=== PATIENT | male | born 1970 | race Caucasian/White ===

== ENCOUNTER 2017-05-16 08:26 | Observation (INO) ==
[2017-05-16 08:56] LABS: Basophils % 0.3 %; Eosinophils # 0.6 K/mcL (0.0-0.6); Eosinophils % 4.9 %; Hematocrit 52.1 % (37.5-50.1); Hemoglobin 17.6 g/dL (12.9-16.9); Immature Granulocytes % 0.5 % (0-4); Lymphocytes # 1.6 K/mcL (0.6-4.6); Lymphocytes % 12.3 %; Mean Corpuscular HGB Conc 33.8 g/dL (31.6-35.5); Mean Corpuscular Hemoglobin 30.7 pg (28.0-33.3); Mean Corpuscular Volume 90.9 fL (83.0-100.0); Mean Platelet Volume 9.5 fL (9.4-12.4); Monocytes # 0.7 K/mcL (0.0-1.3); Monocytes % 5.1 %; Platelet Count 311 K/mcL (140-400); Red Blood Count 5.73 M/mcL (4.19-5.50); Red Cell Distribution Width 12.8 % (11.5-14.5); Segmented Neutrophils % 76.9 %
--- NOTE | 2017-05-16 08:56 | Emergency Department Note ---
Disposition Clinical Impression: Elevated troponin Syncope Qualifiers: Syncope type: unspecified Qualified Code(s): R55 - Syncope and collapse Disposition: Left Against Medical Advice Condition: Fair Instructions: Myocardial Infarction (GEN), Pacemaker (GEN), Syncope (ED) Referrals: [facility] [Outside] Yehuda Carson DO [Partnered Physician] - Yehuda Bess MD [Partnered Physician] - Forms: ED Satisfaction Letter Time of Disposition: 10:22 General Adult HPI - General Chief complaint: ED Syncope Stated complaint: syncope Time Seen by Provider: 05/16/17 08:28 Source: family, EMS Limitations: no limitations Nursing Notes Reviewed: Yes Vital Signs Reviewed: Yes - History of Present Illness HPI Narrative: Mr. Gray, a 46yo male, results from home via EMS for evaluation of syncope versus seizure like activity. Patient had his morning coffee and was walking outside back to his front door after making his rounds around his property. Patient has no additional recollection. He denies any prodromal symptoms. Patient's for the dog bark, she looked outside and found the patient on the ground (grass/gravel) supine, cyanotic mucous membranes, pursed lip breathing, arms and legs extended and with purposeless movement, eyes closed, head moving side to side. Patient had kicked off his left shoe. Patient did not have any incontinence. He denies any pain at this time. Patient has no diagnosis of seizure or syncope however there was a very similar event that occurred approximately 6 weeks ago where patient refused transport to the hospital. He is frustrated at this time because he was not able to refuse; by the time he was coherent and aware he was already in the ambulance being transported. Family history: Patient's grandfather at the age 52 of unknown cause. Patient's mother has a pacemaker defibrillator for symptomatic bradycardia as well as atrial fibrillation. Patient's mother has 22 of 36 cousins had symptomatic bradycardia with subsequent pacemaker defibrillator. PMH: History of histoplasmosis. 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 Partially blind in his right eye-described as complete lack of peripheral vision. He receives regular injections from his preservationist. 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 No other medical problems; no pulmonary or cardiac history. ROS: Positive: Found on ground with no prodromal symptoms. Negative: Fever, chills, nausea, vomiting, chest pains, palpitations, dyspnea, diaphoresis, back pains, weakness, numbness, tingling, headache, changes in vision, abdominal pain. Pain Scale: 0 - Related Data Home Medications Medication Instructions Recorded Confirmed Ibuprofen [Motrin] 600 mg PO Q6HR PRN 05/16/17 05/16/17 Multivit-Min/FA/Lycopen/Lutein [A 1 tab PO DAILY 05/16/17 05/16/17 Thru Z Select Multivit Tab] Allergies Allergy/AdvReac Type Severity Reaction Status Date / Time No Known Allergies Allergy Verified 05/16/17 08:37 All systems ED: reviewed and negative except as stated. Past Medical History - Past Medical History Medical history: Reports: non-contributory Psychiatric history: Reports: no psych history - Social History Smoking Status: Never smoker Smokeless Tobacco Status: No Alcohol use: Reports: none Drug use: Reports: none Physical Exam Vital Signs Reviewed General: Patient is alert, oriented, and in no acute distress. He is answering questions appropriately without hesitation. HEENT: No facial asymmetry. Head is normocephalic and atraumatic. Oral mucosa moist. Trachea midline. Cardiovascular: Heart regular rate and rhythm without clicks, rubs, gallops, or murmurs. No JVD. PMI nondisplaced. Radial posterior tibial pulses 2/4 equal. His capillary refill. Respiratory: Symmetric chest rise with good respiratory effort. Bilateral breath sounds are clear without wheezing, crackles, or rhonchi. Abdomen: Obese. Bowel sounds present normoactive x-4 quadrants. Abdomen is soft, nondistended, and nontender. Unable to assess organomegaly secondary to patient's body habitus. Musculoskeletal: Muscle strength 5/5 and symmetric bilaterally in upper and lower extremities. DTRs 2/4 and symmetric bilaterally in upper and lower extremities. No midline C-spine tenderness. Neuro: Cranial nerves II through XII without deficit. Sensation light touch intact. GCS 15. Psych: Patient's affect is appropriate for situation. - General Limitations: no limitations General appearance: alert, in no apparent distress Course Course Narrative: Patient presents with story concerning for seizure versus syncope. Clinically, his movements appear to be post syncopal convulsions. Patient had no prodromal symptoms. He has never been worked up from either a neurologic or cardiac standpoint. EKG is unremarkable. No recent infections. No headache. Patient troponin is elevated at 0.04. We will provide aspirin. On examination, patient reports to have a headache. We will provide analgesia. Patient's headache improved with analgesia. CT head read as no acute process per radiology. Chest x-ray read as no acute process per radiology. After long discussion with the patient, his , mother, and father at bedside he begrudgingly agrees for admission. I expressed my genuine concern over his asymptomatic syncope coupled with family history of symptomatically bradycardia and the of his grandfather and young age. Reason for admission: Syncope (suspected symptomatic bradycardia), elevated troponins Spoke with him and hospitalist, Dr. Stern, who agrees to accept the patient for continued workup and evaluation. Vital Signs Temperature 97.8 F 05/16/17 08:28 Pulse Rate 74 05/16/17 08:28 Respiratory Rate 16 05/16/17 08:28 Blood Pressure 150/102 05/16/17 08:28 O2 Sat by Pulse Oximetry 96 05/16/17 08:28 Temperature 97.8 F 05/16/17 08:28 Pulse Rate 68 05/16/17 11:08 Respiratory Rate 15 05/16/17 11:08 Blood Pressure 174/118 05/16/17 11:08 O2 Sat by Pulse Oximetry 98 05/16/17 09:46 Oxygen Delivery Oxygen Delivery Room Air Medical Decision Making - Medical Records Medical records reviewed: Yes I reviewed the patient's medical records. - Lab Data Lab results reviewed: Yes I reviewed the patient's lab results. Result diagrams: 05/16/17 08:49 05/16/17 08:49 Lab Results 05/16/17 05/16/17 05/16/17 Range/Units 08:29 08:49 08:49 WBC 13.0 H (4.3-11.1) K/mcL RBC 5.73 H (4.19-5.50) M/mcL Hgb 17.6 H (12.9-16.9) g/dL Hct 52.1 H (37.5-50.1) % MCV 90.9 (83.0-100.0) fL MCH 30.7 (28.0-33.3) pg MCHC 33.8 (31.6-35.5) g/dL RDW 12.8 (11.5-14.5) % Plt Count 311 (140-400) K/mcL MPV 9.5 (9.4-12.4) fL Immature Gran % 0.5 (0-4) % Seg Neutrophils % 76.9 % Lymphocytes % 12.3 % Monocytes % 5.1 % Eosinophils % 4.9 % Basophils % 0.3 % Neutrophils # 10.0 H (1.6-8.9) K/mcL Lymphocytes # 1.6 (0.6-4.6) K/mcL Monocytes # 0.7 (0.0-1.3) K/mcL Eosinophils # 0.6 (0.0-0.6) K/mcL Basophils # 0.0 (0.0-0.2) K/mcL Sodium 138 (136-145) mEq/L Potassium 4.2 (3.5-4.5) mEq/L Chloride 105 (98-109) mEq/L Carbon Dioxide 20 (19-29) mEq/L BUN 8 (8-26) mg/dL Creatinine 1.16 (0.72-1.25) mg/dL Est GFR ( Amer) > 60 (> 60) Est GFR (Non-Af Amer) > 60 (> 60) BUN/Creatinine Ratio 7 (6-26) Glucose 178 H (70-99) mg/dL POC Glucose 176 H (58-89) Calculated Osmolality 289 (280-300) Calcium 9.8 (8.6-10.8) mg/dL Magnesium 2.3 (1.6-2.6) mg/dL Troponin I (0-0.03) ng/mL Urine Color (Yellow) Urine Clarity (Clear) Urine pH (5.0-8.0) pH Units Ur Specific [place] (1.010-1.025) Urine Protein (Neg-Trace) mg/dL Urine Glucose (UA) (Normal) mg/dL Urine Ketones (Negative) mg/dL Urine Blood (Negative) Urine Nitrite (Negative) Urine Bilirubin (Negative) Urine Urobilinogen (Normal) mg/dL Ur Leukocyte Esterase (Negative) Urine Microscopic RBC (0-3) per hpf Urine Microscopic WBC (0-3) per hpf Ur Squamous Epith Cells (None-Few) per lpf Urine Bacteria (None-Few) per hpf Hyaline Casts (None-Few) per lpf Urine Opiates Screen (Ccizrd=643) ng/mL Ur Barbiturates Screen (Okrvyd=317) ng/mL Ur Phencyclidine Scrn (Cutoff=25) ng/mL Ur Amphetamines Screen (Dnctsy=4838) ng/mL U Benzodiazepines Scrn (Vrjblg=181) ng/mL Urine Cocaine Screen (Cutoff= 300) ng/mL U Marijuana (THC) Screen (Cutoff = 50) ng/mL 05/16/17 05/16/17 05/16/17 Range/Units 08:49 09:30 09:30 WBC (4.3-11.1) K/mcL RBC (4.19-5.50) M/mcL Hgb (12.9-16.9) g/dL Hct (37.5-50.1) % MCV (83.0-100.0) fL MCH (28.0-33.3) pg MCHC (31.6-35.5) g/dL RDW (11.5-14.5) % Plt Count (140-400) K/mcL MPV (9.4-12.4) fL Immature Gran % (0-4) % Seg Neutrophils % % Lymphocytes % % Monocytes % % Eosinophils % % Basophils % % Neutrophils # (1.6-8.9) K/mcL Lymphocytes # (0.6-4.6) K/mcL Monocytes # (0.0-1.3) K/mcL Eosinophils # (0.0-0.6) K/mcL Basophils # (0.0-0.2) K/mcL Sodium (136-145) mEq/L Potassium (3.5-4.5) mEq/L Chloride (98-109) mEq/L Carbon Dioxide (19-29) mEq/L BUN (8-26) mg/dL Creatinine (0.72-1.25) mg/dL Est GFR ( Amer) (> 60) Est GFR (Non-Af Amer) (> 60) BUN/Creatinine Ratio (6-26) Glucose (70-99) mg/dL POC Glucose (58-89) Calculated Osmolality (280-300) Calcium (8.6-10.8) mg/dL Magnesium (1.6-2.6) mg/dL Troponin I 0.04 H* (0-0.03) ng/mL Urine Color Yellow (Yellow) Urine Clarity Clear (Clear) Urine pH 6.0 (5.0-8.0) pH Units Ur Specific [place] 1.018 (1.010-1.025) Urine Protein 30 H (Neg-Trace) mg/dL Urine Glucose (UA) Normal (Normal) mg/dL Urine Ketones Negative (Negative) mg/dL Urine Blood Negative (Negative) Urine Nitrite Negative (Negative) Urine Bilirubin Negative (Negative) Urine Urobilinogen Normal (Normal) mg/dL Ur Leukocyte Esterase Negative (Negative) Urine Microscopic RBC 3-5 H (0-3) per hpf Urine Microscopic WBC 0-3 (0-3) per hpf Ur Squamous Epith Cells Moderate H (None-Few) per lpf Urine Bacteria None Seen (None-Few) per hpf Hyaline Casts None Seen (None-Few) per lpf Urine Opiates Screen Negative (Njptoy=329) ng/mL Ur Barbiturates Screen Negative (Kotghw=420) ng/mL Ur Phencyclidine Scrn Negative (Cutoff=25) ng/mL Ur Amphetamines Screen Negative (Clajpv=0595) ng/mL U Benzodiazepines Scrn Negative (Alcfwp=450) ng/mL Urine Cocaine Screen Negative (Cutoff= 300) ng/mL U Marijuana (THC) Screen Positive H (Cutoff = 50) ng/mL - Radiology Data Radiology results reviewed: Yes I reviewed the patient's radiology results. - EKG Data EKG #1 EKG attestation: Yes I reviewed and interpreted this EKG. EKG results narrative: EKG dated 16 May 2017 at 08:34 interpreted as sinus rhythm with rate of 83. Normal intervals. Normal axis. Nonspecific ST-T changes. Release EKG for comparison. Heart Score - Score History: Moderately Suspicious EKG: Normal Age: 45-65 Risk Factors: 1-2 risk factors Troponin: 1-3x normal limit HEART Score Total: 4
--- NOTE | 2017-05-16 09:08 | Emergency Department Note ---
START Narrative - START START: I examined this patient and my medical decision-making was reviewed with the emergency medicine resident. I agree with the documented findings, disposition and treatment plan as described except to the extent set forth below. Patient seen with emergency medicine resident Alverto Bojorquez, Please see a copy of his note for details of the H&P, ED evaluation, management and disposition. I have independently evaluated the patient and confirmed appropriate portions of the history and physical exam. Briefly: 46-year-old male prior history of syncope versus seizure one year ago but refused any workup. He had a syncope versus seizure episode this morning and was transported by EMS. His found him on the floor with his eyes closed breathing heavily and his arms and legs jerking. Patient does have a slight abrasion to his anterior part of his tongue consistent with seizure. Patient is slightly sleepy but awake and alert and GCS 15. Patient will undergo screening labs and noncontrast head CT. EKG was read as no acute ischemic changes sinus rhythm. Admission anticipated, disposition pending.
[2017-05-16 09:09] LABS: BUN/Creatinine Ratio 7 (6-26); Blood Urea Nitrogen 8 mg/dL (8-26); Calcium 9.8 mg/dL (8.6-10.8); Carbon Dioxide 20 mEq/L (19-29); Chloride 105 mEq/L (98-109); Glucose 178 mg/dL (70-99); Magnesium 2.3 mg/dL (1.6-2.6); Osmolality,Calculated 289 (280-300); Potassium 4.2 mEq/L (3.5-4.5); Sodium 138 mEq/L (136-145); eGFR For African Americans > 60 (> 60); eGFR For Non-African Americans > 60 (> 60)
[2017-05-16] MEDS ORDERED: Aspirin 81 MG TAB.CHEW PO ONE (09:20)
[2017-05-16 09:40] LABS: Bilirubin,Urine Negative (Negative); Blood,Urine Negative (Negative); Clarity,Urine Clear (Clear); Color,Urine Yellow (Yellow); Glucose,Urine (UA) Normal (Normal); Ketones,Urine Negative (Negative); Leukocyte Esterase,Urine Negative (Negative); Nitrite,Urine Negative (Negative); Protein,Urine 30 mg/dL (Neg-Trace); Specific Gravity,Urine 1.018 (1.010-1.025); Urobilinogen,Urine Normal (Normal)
[2017-05-16] MEDS ORDERED: Metoclopramide 10 MG/2 ML VIAL IVP ONE (09:40)
[2017-05-16] MEDS ORDERED: Ketorolac 15 MG/ML VIAL IVP ONE (09:40)
[2017-05-16 09:43] LABS: Bacteria,Urine None Seen per hpf (None-Few); Hyaline Casts,Urine None Seen per lpf (None-Few); Squamous Epithelial Cell,Urine Moderate per lpf (None-Few); WBC,Urine 0-3 per hpf (0-3)
[2017-05-16 09:48] LABS: Amphetamine Screen,Urine Negative ng/mL (Cutoff=1000); Barbiturate Screen,Urine Negative ng/mL (Cutoff=200); Benzodiazepines Screen,Urine Negative ng/mL (Cutoff=200); Cannabinoid Screen,Urine Positive ng/mL (Cutoff = 50); Cocaine Screen,Urine Negative ng/mL (Cutoff= 300); Opiate Screen,Urine Negative ng/mL (Cutoff=300); Phencyclidine Screen,Urine Negative ng/mL (Cutoff=25)
[2017-05-16] MEDS ORDERED: Naloxone 0.4 MG/ML INJ IVP PRN (12:47)
[2017-05-16] MEDS ORDERED: Acetaminophen 325 MG TABLET PO PRN (12:53)
[2017-05-16] MEDS ORDERED: *HR* HYDROcodone/Acet 5/325 mg TABLET PO PRN (12:53)
[2017-05-16] MEDS ORDERED: Ondansetron 4 MG/2 ML VIAL IVP PRN (12:53)
[2017-05-16] MEDS ORDERED: *HR* Morphine 2 MG/ML SYRINGE IVP PRN (12:53)
[2017-05-16] MEDS ORDERED: Pantoprazole 40 MG VIAL IVP SCH (13:00)
[2017-05-16] MEDS ORDERED: SUMAtriptan succinate 25 MG TABLET PO PRN (13:04)
[2017-05-16] MEDS ORDERED: Dextrose Gel 15 GM PO PRN ×2 (13:06)
[2017-05-16] MEDS ORDERED: D5% in Water 1,000 ML IVC PRN (13:06)
[2017-05-16] MEDS ORDERED: *HR* Dextrose 50 % in Water (Syg) 50 ML SYRINGE IVP PRN (13:06)
--- NOTE | 2017-05-16 13:21 | Internal Med History&Physical ---
Date of Encounter: 05/16/17 Time of Encounter: 12:00 Assessment and Plan (1) Syncope Current visit: Yes Status: Acute Patient presents with history of syncope. Patient reports he has syncopal episodes approximately every 6 weeks. He states he had a near-syncopal episode yesterday that did not result in blacking out. Patient reports becoming diaphoretic post-event. Patient reports he does not become incontinent during episodes. There is a familial history of atrial fibrillation, HTN, HLD, and pacemaker placement in multiple family members. CT of the head/brain without contrast today shows no acute intracranial process. Bilateral carotid Doppler imaging ordered to rule out carotid blockages. Echocardiogram ordered. MRI of the head/brain ordered to rule out possible ischemia/infarct. Will place patient on continuous telemetry and trend troponins x2. On examination, patient is neurologically intact and EKG today shows sinus rhythm with non-specific T- wave abnormality. Ativan 2 mg Q4 ordered for seizures. Will consider neuro and cardiology consults based on test results. Qualifiers: Syncope type: unspecified Qualified Code(s): R55 - Syncope and collapse (2) Risk for falls Current visit: Yes Status: Acute Patient presents with history of falls and acute fall today due to syncopal episode. Patient placed as falls precautions/up with assist/bed rest with bathroom privileges with assist only due to hx of falls and syncope. (3) Migraine Current visit: Yes Status: Acute Patient presents with acute on chronic migraine headache. Patient reports history of migraines but is not currently taking any medications for migraine symptoms or control. Patient was given diphenhydramine and Toradol in the ED for headache. Imitrex 25 mg every 2 when necessary ordered. Will monitor patient for pain scale. Qualifiers: Migraine type: unspecified Intractability: not intractable Qualified Code (s): G43.909 - Migraine, unspecified, not intractable, without status migrainosus (4) Hyperglycemia Current visit: Yes Status: Acute Patient presents with blood glucose level of 178 on admission to ED. Patient denies any previous history of diabetes. Blood glucose monitoring Q6. A1c ordered for a.m. labs. Low-dose correction insulin sliding scale and hypoglycemia protocol ordered. (5) Elevated troponin Current visit: Yes Status: Acute Patient presents with initial troponin of 0.04 on admission to the ED. Patient denies any cardiac history, current chest pain, palpitations, or flutter. Will trend troponins x2 and place patient on continuous cardiac telemetry. Echocardiogram and bilateral carotid Doppler duplex imaging ordered. Will consider cardiology consult based on test results if warranted. (6) Histoplasmosis Current visit: Yes Status: Chronic Patient presents with history of chronic histoplasmosis and reports total loss of vision in his left eye and partial loss of vision in the right eye. Patient to follow up with his senior oracle adf developer for continued treatments post-discharge. (7) DVT prophylaxis Current visit: Yes Status: Acute Patient to be placed on DVT prophylaxis due to current admission protocol and bed rest status. Heparin 5,000 units SQ Q8 ordered. Internal Medicine - H&P: HPI Chief complaint: Syncope/Collpase Admitted From: Emergency Dept Plans for Post Hospital Care: Home History of present illness: Mr. Gray is a 46 year old male with medical history of migraines and histoplasmosis who presents from the ED with chief complaint of syncope and collapse. Patient reports he is totally blind in his left eye and partially blind in his right eye due to the histoplasmosis and receives injections from his ophthamologist. Patient reports Mr. Gray was outside in the yard when she looked to see him face down on the ground. Patient has no recollection of the event. He denies any prodromal symptoms. Patient reports the symptoms occur approximately every 6 weeks with some mild incident occurring yesterday which did not involve blacking out. Patient reports he becomes hot and his body feels as if it is causing. Patient also reports becoming diaphoretic after the events. Patient denies any nausea, vomiting, recent illness, fever, chills, abdominal pain, chest pain, changes in vision, heart palpitations, or generalized weakness. Patient's EKG today shows sinus rhythm with nonspecific T-wave abnormality and CT of head brain without contrast shows no acute intracranial abnormality. Mr. Gray is currently hemodynamically stable and reports no acute distress on examination. Information taken from patient, family, imaging results, and chart review. Patient is at high risk for further syncopal events based on current symptoms and history and will be placed as observation status. Time spent with patient and family >40 minutes. Past Med Surg Social Fam HX - Past Medical History Source: patient, obtained from family Medical history: migraine, other (Histoplasmosis) Psychiatric history: no psych history - Social History Smoking Status: Former smoker Packs per day: When he was a teenager Smokeless Tobacco Status: No Alcohol use: none Drug use: none Current living situation: Home, With Family Activity Level: Independent ambulation Recent Out of Country Travel Within the Last 8 Weeks: No Exposure or Possible Exposure to Illness During Travel: No - Family History Mother Race: Family Member Ethnicity: Non- Hx Family Cardiac Disorders: Yes (pacer, bradycardia, afib, htn, hld) Hx Family Cancer: Yes Father Race: Family Member Ethnicity: Non- Living Status: Age at : 73 Cause of : [place] Hx Family Cardiac Disorders: Yes ([place]) Brother Race: Family Member Ethnicity: Non- Living Status: Still Living Hx Family Cardiac Disorders: Yes (HTN) Internal Medicine - H&P: Meds Ibuprofen [Motrin] 600 mg PO Q6HR PRN 05/16/17 [History] Multivit-Min/FA/Lycopen/Lutein [A Thru Z Select Multivit Tab] 1 tab PO DAILY 03/25 [History] 3 Allergy/AdvReac Type Severity Reaction Status Date / Time No Known Allergies Allergy Verified 05/16/17 08:37 All Systems PM: A 10-system review of systems was performed and is negative for pertinent findings except as documented above in the HPI. 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 Ears: no ear discharge, no ear pain, no tinnitus Nose, mouth and throat: no dysphagia, no nasal discharge, no neck pain, no sore throat - Breasts Breasts: as per HPI - Cardiovascular Cardiovascular ROS IM: no chest pain, no diaphoresis, no dyspnea, no lightheadedness, no palpitations, no syncope - Respiratory Respiratory: no cough, no dyspnea, no wheezing, no excessive phlegm production - Gastrointestinal Gastrointestinal: no abdominal pain, no diarrhea, no hematemesis, no hematochezia, no melena, no nausea, no vomiting - Genitourinary Genitourinary ROS male: as per HPI - Musculoskeletal Musculoskeletal ROS IM: no numbness, no tingling - Integumentary Integumentary IM: no rash, no unusual bruising - Neurological Neurological ROS: as per HPI - Psychiatric Psychiatric: as per HPI - Endocrine Endocrine IM: as per HPI - Hematologic/Lymphatic Hematologic/Lymphatic: no easy bruising - Allergic/Immunologic Allergic/Immunologic: as per HPI - Constitutional Vitals: Temp Pulse Resp BP Pulse Ox 98.3 F 63 16 180/96 94 05/16/17 12:05/16/17 12:05/16/17 12:05/16/17 12:05/16/17 12:09 General appearance: Present: cooperative, A&O X 3, pleasant, no acute distress, obese, answers questions appropriately - Head Head exam: Present: atraumatic, normocephalic - Eye Eye exam: Present: PERRL, conjuntiva pink, sclera anicteric Pupils: Present: PERRL - ENT ENT exam: Present: normal exam, normal external ear exam - Neck Neck exam general surgery: Present: normal inspection, supple, trachea midline. Absent: lymphadenopathy - Respiratory Respiratory exam: Present: CTAB. Absent: accessory muscle use, rales, rhonchi, wheezes - Cardiovascular Cardiovascular exam: Present: RRR, +S1, +S2. Absent: diastolic murmur, gallop, rubs, systolic murmur - GI/Abdominal GI/Abdominal exam: Present: normal bowel sounds, soft, no peritoneal signs. Absent: distended, tenderness - Rectal Rectal exam: Present: deferred - Additional comments: exam deferred. - Extremities Exam Extremities exam: Present: warm, radial pulses palpable and symmetrical. Absent : calf tenderness, cyanotic, pedal edema - Back Exam Back exam: Present: normal inspection - Neurological Exam Neurological exam: Present: CN II-XII intact, oriented X3, no focal deficits. Absent: pronater drift, facial droop, speech deficit - Psychiatric Psychiatric exam: Present: normal affect, normal mood - Skin Skin exam: Present: dry, intact Internal Med - H&P Results - Labs CBC & Chem 7: 05/16/17 08:49 05/16/17 08:49 - EKG Data EKG shows normal: sinus rhythm - EKG Data Prior EKG available for review: no EKG comments: 05/16/17 14:34 EKG dated 05/16/17 shows sinus rhythm with non-specific T-wave abnormality. - Diagnostic Studies Chest x-ray Additional comments: Impressions Chest X-Ray 05/16/17 08:41 IMPRESSION: No acute abnormality. D/ / 05/16/2017 11:01:23 Chevy Gunn MD / [email or web address] Interpreting Provider: Chevy Gunn MD CT scan - head Additional comments: Impressions Head CT 05/16/17 08:42 IMPRESSION: No acute intracranial process identified. D/ / Brenden Pino MD / Brenden Pino MD Interpreting Provider: Brenden Pino MD
[2017-05-16] MEDS: *HR* Heparin 5,000 UNIT/ML VIAL SQ SCH ×2 (14:31→21:11)
[2017-05-16] MEDS: Insulin LISPRO 300 UNITS/3 ML VIAL SQ SCH (16:18)
--- NOTE | 2017-05-16 17:12 | Event Note ---
Date of Encounter: 05/16/17 Time of Encounter: 13:00 Patient seen and evaluated along with nurse practitioner; please refer to H&P fir complete details- Briefly, 46-year-old male with no significant past medical history and no medical follow-up presents with a witnessed seizure-like activity at home. On further questioning, patient reports similar intermittent episodes every few weeks, ongoing since at least the last 7 months. He describes the episodes as mainly blackouts, sometimes he regains consciousness within a few seconds by himself and sometimes like this morning, he has witnessed episodes. He was noted to have rocking motion of his head with extension of his trunk and extremities this morning after the found him face down in the yard. Patient denies chest pain, dyspnea, palpitations and only reports some diaphoresis after the episode. Patient seen and examined at bedside. Denies acute symptoms at this time. Chest-S1, S2 heard, regular rate and rhythm. Lungs are clear to auscultation Abdomen soft and nontender Labs reviewed-WBC 13, serum troponin 0.04, urine drug screen positive for marijuana EKG reviewed independently-reveals normal sinus rhythm, no ischemic changes Chest x-ray reviewed independently-clear lung doll CT head shows no acute abnormality Syncope-recurrent and multiple episodes with strong family history of electrical and conduction abnormalities with history of pacemakers and ICD placements in mother, grandfather, aunt and uncle. To rule out cardiogenic syncope. Continue telemetry monitoring, cycle troponins. Check 2-D echocardiogram and carotid Doppler. Will consult cardiology as needed. Seizure-like activity-less likely seizure/epilepsy. Check MRI brain. When necessary IV Ativan for repeat episodes. Likely associated with post-syncopal convulsions.
[2017-05-16] MEDS: *HR* LORazepam 2 MG/ML VIAL IVP SCH ×2 (20:49→23:47)
[2017-05-16] MEDS ORDERED: Insulin LISPRO 300 UNITS/3 ML VIAL SQ SCH (21:00)
[2017-05-17] MEDS: *HR* LORazepam 2 MG/ML VIAL IVP SCH ×2 (04:13→08:05)
[2017-05-17 04:39] LABS: Basophils % 0.3 %; Eosinophils # 0.6 K/mcL (0.0-0.6); Eosinophils % 5.3 %; Hematocrit 44.9 % (37.5-50.1); Immature Granulocytes % 0.3 % (0-4); Lymphocytes # 3.3 K/mcL (0.6-4.6); Lymphocytes % 30.5 %; Mean Corpuscular HGB Conc 34.5 g/dL (31.6-35.5); Mean Corpuscular Hemoglobin 31.3 pg (28.0-33.3); Mean Corpuscular Volume 90.5 fL (83.0-100.0); Mean Platelet Volume 9.4 fL (9.4-12.4); Monocytes % 9.3 %; Platelet Count 269 K/mcL (140-400); Red Blood Count 4.96 M/mcL (4.19-5.50); Red Cell Distribution Width 12.8 % (11.5-14.5); Segmented Neutrophils % 54.3 %
[2017-05-17 04:42] LABS: Hemoglobin 15.5 g/dL (12.9-16.9); INR 1.1; Prothrombin Time 12.2 Seconds (9.4-12.1)
[2017-05-17 04:43] LABS: Hemoglobin A1C 5.1 %
[2017-05-17 04:44] LABS: Activated Partial Thrombo Time 38.9 Seconds (26.0-36.0)
[2017-05-17 04:58] LABS: Alanine Aminotransferase 13 Units/L (0-55); Albumin 3.4 g/dL (3.5-5.0); Albumin/Globulin Ratio 1.1 (1.1-2.2); Alkaline Phosphatase 81 Units/L (38-126); Aspartate Amino Transferase 15 Units/L (5-34); BUN/Creatinine Ratio 10 (6-26); Blood Urea Nitrogen 10 mg/dL (8-26); Calcium 9.1 mg/dL (8.6-10.8); Carbon Dioxide 22 mEq/L (19-29); Chloride 108 mEq/L (98-109); Chol/HDL Ratio 5.3 (0-4.9); Cholesterol 181 mg/dL (< 200); Glucose 93 mg/dL (70-99); HDL Cholesterol 34 mg/dL (40-59); LDL Cholesterol,Calculated 127 mg/dL (0-99); Magnesium 2.2 mg/dL (1.6-2.6); Osmolality,Calculated 287 (280-300); Potassium 3.6 mEq/L (3.5-4.5); Sodium 139 mEq/L (136-145); Total Protein 6.4 g/dL (6.0-8.3); Triglycerides 99 mg/dL (< 150); eGFR For African Americans > 60 (> 60); eGFR For Non-African Americans > 60 (> 60)
[2017-05-17] MEDS: *HR* Heparin 5,000 UNIT/ML VIAL SQ SCH (06:35)
[2017-05-17 07:13] VITALS: BP 151/89
[2017-05-17] MEDS: Insulin LISPRO 300 UNITS/3 ML VIAL SQ SCH (08:05)
--- NOTE | 2017-05-17 08:51 | Discharge Summary ---
<Mahamed Urbano - Last Filed: 05/17/17 14:28> Date of Encounter: 05/17/17 Time of Encounter: 08:50 - Discharge Diagnosis (1) Syncope Priority: Primary Status: Resolved Qualifiers: Syncope type: unspecified Qualified Code(s): R55 - Syncope and collapse (2) Elevated troponin Priority: Secondary Status: Acute (3) Hyperglycemia Priority: Secondary Status: Acute (4) Migraine Priority: Secondary Status: Resolved Qualifiers: Migraine type: unspecified Intractability: not intractable Qualified Code (s): G43.909 - Migraine, unspecified, not intractable, without status migrainosus (5) Risk for falls Priority: Secondary Status: Chronic (6) Histoplasmosis Priority: Secondary Status: Chronic (7) DVT prophylaxis Priority: Secondary Status: Acute - Discharge Medications Home Medications: Ibuprofen [Motrin] 600 mg PO Q6HR PRN 05/16/17 [History] Multivit-Min/FA/Lycopen/Lutein [A Thru Z [employer] Multivit Tab] 1 tab PO DAILY 03/25 [History] Allergies/Adverse Reactions: 3 Allergy/AdvReac Type Severity Reaction Status Date / Time No Known Allergies Allergy Verified 05/16/17 08:37 Procedures/tests Complete & Pending: Procedures Performed prior 72 hours Category Date Time Status MR head/brain wo con [MR] Routine MRI 05/16/17 14:28 Completed EV carotid duplex imaging BI Routine Y 05/16/17 13:01 Completed EV echocardiogram Routine Y 05/16/17 13:02 Completed Date of admission: 05/16/17 11:35 Primary care physician: PCP NONE Consults: 05/16/17 12:55 Consult to Physical Therapy [CONS] Routine Comment: Evaluate, develop and implement POC Reason for Consult: Patient has hx of syncopal episodes. Please assess for stability with ambulation, safety measures, and possible need for assistive devices for safe ambulation. 05/16/17 12:57 Consult to Occupational Therapy [CONS] Routine Comment: Evaluate, develop and implement POC Reason for Consult: Patient has hx of syncopal episodes. Please assess for stability with ambulation, safety measures, and possible need for assistive devices for safe ambulation. Discharging clinician: Mahamed Urbano Anticipated date of discharge: 05/17/17 - Patient Status Disposition: Left Against Medical Advice Condition: Fair Functional capacity at discharge: independent ambulation Overall status at discharge: patient is progressing back to baseline - Discharge Instructions Follow Up With: NONE,PCP [Primary Care Provider] - Sheldon Dickens MD [Partnered Physician] - Additional Instructions: Please be sure to follow-up with her primary care physician and also a load tallier involving your syncopal episodes. We have recommended a Holter monitor for further evaluation at this time. - Diet and Activity Activity: increase activity as tolerated, resume usual activities as tolerated Diet: advance to your usual diet Hospital course: Mr. Gray is a 46 year old male presented to the emergency department with a chief complaint of syncope and collapse. He states that he has been having these episodes since October, and experiences a syncopal episode approximately every 6 weeks. He has not been evaluated at this time. Patient reports that he becomes hot and his body feels as if it is collapsing. Also admits to diaphoresis during these episodes. Denies any symptoms of nausea, vomiting, recent illness, fever, chills, abdominal pain or chest pain, palpitations, weakness. In the emergency department vital signs were significant for hypertension at 150/102, remainder of vital signs within normal limits. There was also significant for leukocytosis at 13.0, H&H of 17.6/52.1, hyperglycemia at 178, troponin was mildly elevated at 0.04. Urine drug screen was positive for marijuana. EKG emergency department showed normal sinus rhythm with rate of [address] changes. He is admitted to medicine service for further evaluation of syncopal episode with elevated troponin and leukocytosis. During the course of hospital stay, patient remained asymptomatic. Patient elected to leave AGAINST MEDICAL ADVICE before cardiac workup could be completed. Brain MRI emergency department revealed no acute process. He was instructed and counseled on importance of thorough cardiac workup to rule out any pathology, however he was insistent on following up as an outpatient. He was offered to be seen by cardiology this morning for a possible Holter event monitor, however he again elected to leave before being seen. He was strongly encouraged to follow-up with his primary care physician as well as a load tallier. - Time Spent with Patient Total time spent providing and/or coordinating discharge services: 40 minutes - Constitutional Vitals: Temp Pulse Resp BP Pulse Ox 98.5 F 59 16 151/89 97 05/17/17 07:09 05/17/17 07:09 05/17/17 07:09 05/17/17 07:09 05/17/17 07:09 General appearance: Present: cooperative, A&O X 3, pleasant, no acute distress, obese, answers questions appropriately Exam: Gen.: Vitals noted. No acute distress. AAOx3 HEENT: PERRL/EOMI, oropharynx clear, Normocephalic, atraumatic Neck: Supple. No adenopathy. Cardiac: RRR, no murmur, +S1/S2 Pulmonary: CTA bilaterally, no wheezes, rales or rhonchi, equal chest expansion Abdomen: soft, nontender, BS noted, no guarding Back: Nontender throughout. MSK: ROM intact, no joint swelling noted Extremities: no BLE edema, nontender calf, no cyanosis or clubbing Neuro: A&Ox3, moves all extremities, no focal deficits Psych: Appropriate mood and behavior <Jerald Pedroza - Last Filed: 05/17/17 17:30> Date of Encounter: 05/17/17 - Discharge Diagnosis (1) Syncope Status: Resolved Qualifiers: Syncope type: unspecified Qualified Code(s): R55 - Syncope and collapse (2) Hyperglycemia Status: Acute (3) Histoplasmosis Status: Chronic (4) Migraine Status: Resolved Qualifiers: Migraine type: other Status migrainosus presence: without status migrainosus Intractability: not intractable Qualified Code(s): G43.809 - Other migraine, not intractable, without status migrainosus Procedures/tests Complete & Pending: Procedures Performed prior 72 hours Category Date Time Status MR head/brain wo con [MR] Routine MRI 05/16/17 14:28 Completed EV carotid duplex imaging BI Routine Y 05/16/17 13:01 Completed EV echocardiogram Routine Y 05/16/17 13:02 Completed Date of admission: 05/16/17 11:35 Primary care physician: PCP NONE Consults: 05/16/17 12:55 Consult to Physical Therapy [CONS] Routine Comment: Evaluate, develop and implement POC Reason for Consult: Patient has hx of syncopal episodes. Please assess for stability with ambulation, safety measures, and possible need for assistive devices for safe ambulation. 05/16/17 12:57 Consult to Occupational Therapy [CONS] Routine Comment: Evaluate, develop and implement POC Reason for Consult: Patient has hx of syncopal episodes. Please assess for stability with ambulation, safety measures, and possible need for assistive devices for safe ambulation. Hospital course: Mr. Gray is a 46 year old male - Time Spent with Patient Total time spent providing and/or coordinating discharge services: - Constitutional Vitals: Temp Pulse Resp BP Pulse Ox 98.5 F 59 16 151/89 97 05/17/17 07:09 05/17/17 07:09 05/17/17 07:09 05/17/17 07:09 05/17/17 07:09 - Attending Attestation I examined this patient and my medical decision-making was reviewed with the Resident Physician on 05/17/17. I agree with the documented findings, disposition and treatment plan as described except to the extent set forth below. Mr. Gray was placed in observation for syncopal episode. He was monitored overnight and in AM 05/17/17 wanted to leave AMA. He has family hx of cardiac issues and we felt he needed further cardiac workup. We made attempt to discharge him with a 30day event monitor but he did not want to stay. Exam Alert. Comfortable No edema Heart not tachy Plan D/C AMA.
--- NOTE | 2017-05-17 15:05 | Carotid Imaging Report ---
Carotid Duplex Patient Name:Devin Gray Order Number:[id number] Procedure Date:05/16/2017 Date:1970Age:46 yrs Gender:Male Lt BP:151 / 93 mmHg Rt.BP:144 / 94 mmHgHeart Rate: Location:[facility] Room #: 2A24 Power Wood Sawyer:Dina Valenzuela Referring MD:Denver Adams CNP supervisor boatbuilders wood:None Reading MD:Chente Auguste MD Primary Indications:Hx of syncope Impressions: The right carotid artery is normal throughout. The left carotid artery has minimal plaque throughout. Recommendations: After imaging the patient returned to their room. Findings Carotid Duplex: Right: The right proximal common carotid artery has a PSV of 96 cm/s and a EDV of 19 cm/s. The right mid common carotid artery has a PSV of 83 cm/s and a EDV of 20 cm/s. The right distal common carotid artery has a PSV of 67 cm/s and a EDV of 15 cm/s. The right bifurcation has a PSV of 72 cm/s and a EDV of 17 cm/s. The right proximal internal carotid artery has a PSV of 56 cm/s and a EDV of 18 cm/s. The right mid internal carotid artery has a PSV of 48 cm/s and a EDV of 15 cm/s. The right distal internal carotid artery has a PSV of 84 cm/s and a EDV of 33 cm/s. The right eca has a PSV of 140 cm/s and a EDV of 13 cm/s. The right vertebral artery has a PSV of 39 cm/s and a EDV of 8 cm/s. Left: The left proximal common carotid artery has a PSV of 89 cm/s and a EDV of 16 cm/s. The left mid common carotid artery has a PSV of 98 cm/s and a EDV of 18 cm/s. The left distal common carotid artery has a PSV of 78 cm/s and a EDV of 16 cm/s. The left bifurcation has a PSV of 80 cm/s and a EDV of 19 cm/s. There is nonstenotic plaque in the left proximal internal carotid artery with a PSV of 102 cm/s and a EDV of 15 cm/s. The left mid internal carotid artery has a PSV of 73 cm/s and a EDV of 19 cm/s. The left distal internal carotid artery has a PSV of 55 cm/s and a EDV of 18 cm/s. The left eca has a PSV of 127 cm/s and a EDV of 11 cm/s. The left vertebral artery has a PSV of 42 cm/s and a EDV of 10 cm/s. Prior Study: No prior study available for comparison. Carotid Results Right PSV EDV Assessment Proximal CCA 96 19 Normal Mid CCA 83 20 Normal Distal CCA 67 15 Normal Bifurcation 72 17 Normal Proximal ICA 56 18 Normal Mid ICA 48 15 Normal Distal ICA 84 33 Normal ECA 140 13 Normal Vertebral Artery 39 8 Normal Left PSV EDV Assessment Proximal CCA 89 16 Normal Mid CCA 98 18 Normal Distal CCA 78 16 Normal Bifurcation 80 19 Normal Proximal ICA 102 15 Non Stenotic Plaque Mid ICA 73 19 Normal Distal ICA 55 18 Normal ECA 127 11 Normal Vertebral Artery 42 10 Normal Ratio's Right ICA/CCA Ratio: 1.01 ICA/CCA Values: 84/83 Left ICA/CCA Ratio: 1.04 ICA/CCA Values: 102/98 Updated by Chente Auguste MD on 05/17/2017 2:59:44 PM electronically signed on 05/17/2017 3:00:29 PM with status of Final
--- NOTE | 2017-05-17 16:26 | Electrocardiograph Report ---
[address] [address] Test Date: 2017-05-16 Pat Name: Devin Gray Department: 102 Room: 2A24 Gender: M Sales Account Associate: : 1970 Requested By: Alverto Bojorquez Order Number: [id number] Reading MD: Naomi Dickens Measurements Intervals Wells Rate: 83 P: 49 ME: 150 QRS: 8 QRSD: 100 T: 82 QT: 379 QTc: 418 Interpretive Statements SINUS RHYTHM NONSPECIFIC T-WAVE ABNORMALITY Electronically Signed On 05-17-2017 16:25:08 EDT by Naomi Dickens
== END 2017-05-17 09:00 | disposition left against medical advice (07) ==
LOC: 2ANU 08:26 → EMEROO 08:26 → 2ANU 11:50
PROVIDERS: ADMIT Internal Medicine; ATTEND Internal Medicine

== ENCOUNTER 2019-10-26 10:53 | Inpatient (IN) ==
[2019-10-26] MEDS ORDERED: *HR* HYDROcodone/Acet 5/325 mg TABLET PO ONE (11:25)
[2019-10-26] MEDS ORDERED: Ondansetron 4 MG/2 ML VIAL IVP ONE ×2 (13:14→17:56)
[2019-10-26] MEDS ORDERED: 0.9 % Sodium Chloride 500 ML IVC ONE (13:14)
[2019-10-26] MEDS ORDERED: *HR* HYDROmorphone (PF) 1 MG/ML SYRINGE IVP ONE (13:14)
[2019-10-26 13:15] LABS: Basophils % 0.2 %; Eosinophils % 0.2 %; Hematocrit 47.4 % (37.5-50.1); Hemoglobin 16.2 g/dL (12.9-16.9); Immature Granulocytes % 0.3 % (0-4); Lymphocytes # 0.6 K/mcL (0.6-4.6); Lymphocytes % 3.3 %; Mean Corpuscular HGB Conc 34.2 g/dL (31.6-35.5); Mean Corpuscular Hemoglobin 31.4 pg (28.0-33.3); Mean Corpuscular Volume 91.9 fL (83.0-100.0); Mean Platelet Volume 9.5 fL (9.4-12.4); Monocytes # 0.6 K/mcL (0.0-1.3); Monocytes % 3.6 %; Neutrophils # 15.9 K/mcL (1.6-8.9); Platelet Count 254 K/mcL (140-400); Red Blood Count 5.16 M/mcL (4.19-5.50); Red Cell Distribution Width 12.6 % (11.5-14.5); Segmented Neutrophils % 92.4 %; White Blood Count 17.2 K/mcL (4.3-11.1)
[2019-10-26 13:34] LABS: BUN/Creatinine Ratio 13 (6-26); Blood Urea Nitrogen 10 mg/dL (6-20); Calcium 9.4 mg/dL (8.6-10.3); Carbon Dioxide 24 mEq/L (23-29); Chloride 103 mEq/L (98-107); Glucose 125 mg/dL (70-105); Osmolality,Calculated 287 (280-300); Potassium 3.9 mEq/L (3.5-5.1); Sodium 138 mEq/L (136-145); eGFR For African Americans > 60 (> 60); eGFR For Non-African Americans > 60 (> 60)
[2019-10-26] MEDS ORDERED: Ondansetron 4 MG/2 ML VIAL IVP PRN (14:12)
[2019-10-26] MEDS ORDERED: Naloxone 0.4 MG/ML INJ IVP PRN ×2 (14:12→20:36)
[2019-10-26] MEDS ORDERED: *HR* Labetalol 20 MG/4 ML SYRINGE IVP PRN ×2 (14:14→20:36)
[2019-10-26] MEDS ORDERED: *HR* Midazolam HCl 2 MG/2 ML VIAL ONE (17:02)
[2019-10-26] MEDS ORDERED: *HR* FentaNYL (PF) 100 MCG/2 ML VIAL ONE (17:02)
[2019-10-26] MEDS ORDERED: *HR* Propofol 200 MG/20 ML VIAL IVP ONE (17:03)
[2019-10-26] MEDS ORDERED: Lidocaine -MPF 2% 2 ML VIAL ONE ×2 (17:03)
[2019-10-26] MEDS ORDERED: Lidocaine HCL 4 ML Topical Solution (Laryng-O-Jet Kit Sterile Pak) TP ONE (17:06)
[2019-10-26] MEDS ORDERED: *HR* OxyCODONE Immed Rel 5 MG TABLET PO PRN (17:56)
[2019-10-26] MEDS ORDERED: ceFAZolin 2,000 MG in Water for inj. (sterile) 20 ML IVP ONE (17:56)
[2019-10-26] MEDS ORDERED: *HR* Promethazine 25 MG/ML VIAL IVP PRN (17:56)
[2019-10-26] MEDS ORDERED: *HR* Heparin 5,000 UNIT/ML VIAL SQ SCH (18:00)
[2019-10-26] MEDS ORDERED: Acetaminophen IV 1,000 MG/100 ML INFUS..BTL ONE ×2 (18:00→18:16)
[2019-10-26] MEDS ORDERED: Famotidine 20 MG/2 ML VIAL ONE (18:00)
[2019-10-26] MEDS ORDERED: Ondansetron 4 MG/2 ML VIAL ONE (18:42)
[2019-10-26] MEDS ORDERED: Dexamethasone 4 MG/ML VIAL ONE (18:42)
[2019-10-26] MEDS ORDERED: *HR* HYDROMORPHONE 2 MG/ML VIAL ONE (18:46)
[2019-10-26] MEDS: *HR* Labetalol 20 MG/4 ML SYRINGE IVP PRN ×3 (19:55→20:15)
[2019-10-26] MEDS ORDERED: Sennosides 8.6 MG TABLET PO PRN (20:36)
[2019-10-26] MEDS ORDERED: Amantadine Oral Soln 50 MG/5 ML UDC PO SCH (21:00)
[2019-10-26] MEDS ORDERED: Gabapentin 300 MG CAPSULE PO SCH (21:00)
[2019-10-26] MEDS: Gabapentin 300 MG CAPSULE PO SCH (21:28)
[2019-10-26] MEDS: Amantadine Oral Soln 50 MG/5 ML UDC PO SCH (21:30)
[2019-10-26] MEDS: ceFAZolin 2,000 MG in 0.9 % Sodium Chloride 100 ML IVPB SCH (23:49)
[2019-10-27] MEDS: ceFAZolin 2,000 MG in 0.9 % Sodium Chloride 100 ML IVPB SCH (08:10)
[2019-10-27] MEDS: Cholecalciferol (D-3) 1,000 UNIT (25MCG) TABLET PO SCH (08:11)
[2019-10-27] MEDS: Gabapentin 300 MG CAPSULE PO SCH ×2 (08:11→20:20)
[2019-10-27] MEDS: amLODIPine 5 MG TABLET PO SCH (08:11)
[2019-10-27] MEDS: Amantadine Oral Soln 50 MG/5 ML UDC PO SCH ×2 (08:12→20:19)
[2019-10-27] MEDS ORDERED: amLODIPine 5 MG TABLET PO SCH (09:00)
[2019-10-27] MEDS ORDERED: Ondansetron 4 MG/2 ML VIAL IVP PRN (09:27)
[2019-10-27] MEDS ORDERED: Morphine Sulfate 2 MG/ML SYRINGE IVP ONE (09:27)
[2019-10-27 10:49] LABS: Basophils % 0.1 %; Hematocrit 35.7 % (37.5-50.1); Immature Granulocytes % 0.4 % (0-4); Lymphocytes # 0.7 K/mcL (0.6-4.6); Lymphocytes % 5.1 %; Mean Corpuscular HGB Conc 35.9 g/dL (31.6-35.5); Mean Corpuscular Hemoglobin 31.8 pg (28.0-33.3); Mean Corpuscular Volume 88.6 fL (83.0-100.0); Mean Platelet Volume 9.5 fL (9.4-12.4); Monocytes # 0.8 K/mcL (0.0-1.3); Monocytes % 5.4 %; Neutrophils # 12.6 K/mcL (1.6-8.9); Platelet Count 246 K/mcL (140-400); Red Blood Count 4.03 M/mcL (4.19-5.50); Red Cell Distribution Width 12.7 % (11.5-14.5); White Blood Count 14.2 K/mcL (4.3-11.1)
[2019-10-27 10:57] LABS: Hemoglobin 12.8 g/dL (12.9-16.9)
[2019-10-27 11:18] LABS: BUN/Creatinine Ratio 14 (6-26); Blood Urea Nitrogen 12 mg/dL (6-20); Calcium 8.8 mg/dL (8.6-10.3); Carbon Dioxide 23 mEq/L (23-29); Chloride 105 mEq/L (98-107); Glucose 170 mg/dL (70-105); Osmolality,Calculated 294 (280-300); Potassium 4.2 mEq/L (3.5-5.1); Sodium 140 mEq/L (136-145); eGFR For African Americans > 60 (> 60); eGFR For Non-African Americans > 60 (> 60)
[2019-10-27] MEDS ORDERED: *HR* Metoprolol 5 MG/5 ML VIAL IVP ONE ×2 (11:57→23:00)
[2019-10-27] MEDS: 0.9 % Sodium Chloride 1,000 ML IVC SCH ×2 (12:14→22:56)
[2019-10-27] MEDS ORDERED: Isovue-370 500 ML BOTTLE IVP ONE (15:46)
[2019-10-27] MEDS: Aspirin Enteric Coated 81 MG Tablet PO SCH (17:10)
[2019-10-27] MEDS ORDERED: 0.9 % Sodium Chloride 250 ML IVC ONE (20:07)
[2019-10-28 06:11] LABS: Basophils % 0.2 %; Eosinophils # 0.2 K/mcL (0.0-0.6); Eosinophils % 1.5 %; Hematocrit 31.2 % (37.5-50.1); Hemoglobin 10.8 g/dL (12.9-16.9); Immature Granulocytes % 0.2 % (0-4); Lymphocytes # 1.7 K/mcL (0.6-4.6); Lymphocytes % 16.7 %; Mean Corpuscular HGB Conc 34.6 g/dL (31.6-35.5); Mean Corpuscular Hemoglobin 32.1 pg (28.0-33.3); Mean Corpuscular Volume 92.9 fL (83.0-100.0); Mean Platelet Volume 9.6 fL (9.4-12.4); Monocytes # 1.1 K/mcL (0.0-1.3); Monocytes % 10.2 %; Neutrophils # 7.4 K/mcL (1.6-8.9); Platelet Count 212 K/mcL (140-400); Red Blood Count 3.36 M/mcL (4.19-5.50); Red Cell Distribution Width 13.1 % (11.5-14.5); Segmented Neutrophils % 71.2 %; White Blood Count 10.4 K/mcL (4.3-11.1)
[2019-10-28 06:34] LABS: BUN/Creatinine Ratio 14 (6-26); Blood Urea Nitrogen 10 mg/dL (6-20); Calcium 8.4 mg/dL (8.6-10.3); Carbon Dioxide 25 mEq/L (23-29); Chloride 106 mEq/L (98-107); Glucose 125 mg/dL (70-105); Magnesium 1.9 mg/dL (1.6-2.6); Osmolality,Calculated 285 (280-300); Potassium 3.7 mEq/L (3.5-5.1); Sodium 137 mEq/L (136-145); eGFR For African Americans > 60 (> 60); eGFR For Non-African Americans > 60 (> 60)
[2019-10-28] MEDS: Cholecalciferol (D-3) 1,000 UNIT (25MCG) TABLET PO SCH (09:35)
[2019-10-28] MEDS: amLODIPine 5 MG TABLET PO SCH (09:35)
[2019-10-28] MEDS: Aspirin Enteric Coated 81 MG Tablet PO SCH (09:36)
[2019-10-28] MEDS: Gabapentin 300 MG CAPSULE PO SCH ×2 (09:36→21:53)
[2019-10-28] MEDS: Amantadine Oral Soln 50 MG/5 ML UDC PO SCH ×2 (09:36→21:53)
[2019-10-28] MEDS ORDERED: 0.9 % Sodium Chloride 1,000 ML IVC SCH (13:00)
[2019-10-29 06:16] LABS: Basophils % 0.4 %; Eosinophils # 0.4 K/mcL (0.0-0.6); Eosinophils % 4.1 %; Hematocrit 27.8 % (37.5-50.1); Hemoglobin 9.4 g/dL (12.9-16.9); Immature Granulocytes % 0.3 % (0-4); Lymphocytes # 1.1 K/mcL (0.6-4.6); Lymphocytes % 11.9 %; Mean Corpuscular HGB Conc 33.8 g/dL (31.6-35.5); Mean Corpuscular Hemoglobin 31.4 pg (28.0-33.3); Mean Platelet Volume 9.7 fL (9.4-12.4); Monocytes # 0.9 K/mcL (0.0-1.3); Monocytes % 9.7 %; Neutrophils # 6.8 K/mcL (1.6-8.9); Platelet Count 202 K/mcL (140-400); Red Blood Count 2.99 M/mcL (4.19-5.50); Red Cell Distribution Width 13.1 % (11.5-14.5); Segmented Neutrophils % 73.6 %; White Blood Count 9.2 K/mcL (4.3-11.1)
[2019-10-29 09:21] LABS: BUN/Creatinine Ratio 12 (6-26); Blood Urea Nitrogen 7 mg/dL (6-20); Calcium 8.3 mg/dL (8.6-10.3); Carbon Dioxide 25 mEq/L (23-29); Chloride 104 mEq/L (98-107); Glucose 117 mg/dL (70-105); Osmolality,Calculated 281 (280-300); Potassium 3.6 mEq/L (3.5-5.1); Sodium 136 mEq/L (136-145); eGFR For African Americans > 60 (> 60); eGFR For Non-African Americans > 60 (> 60)
[2019-10-29] MEDS: Aspirin Enteric Coated 81 MG Tablet PO SCH (09:36)
[2019-10-29] MEDS: Gabapentin 300 MG CAPSULE PO SCH (09:36)
[2019-10-29] MEDS: Amantadine Oral Soln 50 MG/5 ML UDC PO SCH (09:37)
[2019-10-29] MEDS: amLODIPine 5 MG TABLET PO SCH (09:37)
[2019-10-29] MEDS: Cholecalciferol (D-3) 1,000 UNIT (25MCG) TABLET PO SCH (09:37)
[2019-10-29 10:14] VITALS: BP 140/78
[2019-10-29] MEDS ORDERED: *HR* Metoprolol 5 MG/5 ML VIAL IVP ONE (21:45)
== END 2019-10-29 12:50 | DRG 481 ==
LOC: 3NENU 10:53 → EMEROOARM 10:53 → SUATTDRO 14:14 → OBSVTOIN 14:14 → 3NENU 15:25
PROVIDERS: ADMIT Pharmacist; ATTEND Internal Medicine